=== PATIENT | female | born 1985 | race Caucasian/White ===

== ENCOUNTER 2017-06-20 02:22 | Emergency (ER) | payer MEDICAID, OTHER ==
[~2017-06-20] VITALS: Ht 157.5 cm; Wt 89.0 kg
[~2017-06-20 02:22] MED LIST: FERR28TA PO; HYDR-762 PO; OMEP20CA9 PO; PREN1TAB17 PO; RANI150T9 PO; ZOF8 PO
[2017-06-20 02:31] VITALS: Ht 157.5 cm; Wt 89.0 kg
[2017-06-20] MEDS ORDERED: ONDANSETRON (ODT) 4 MG TAB ODT STA (04:22)
[2017-06-20] MEDS ORDERED: ACET/BUTAL/CAFF TAB PO ONE (04:30)
[2017-06-20 04:31] LABS: URINE BLOOD (Dip) POC Negative (NEGATIVE)
--- NOTE | 2017-06-20 05:06 | RADRPT ---
PROCEDURE: Noncontrast CT Head. CLINICAL INDICATION: Headache and vomiting TECHNIQUE: Noncontrast CT of the head was obtained. The administered radiation dose was CTDI vol = 45 mGy, DLP = 720 mGy-cm. COMPARISON: No pertinent prior examinations were submitted for comparison. FINDINGS: The ventricles and sulci are within normal limits. There is no acute intracranial hemorrhage or ext ra-axial fluid collection. There is no mass effect. No midline shift is identified. There is no loss of burnette-white differentiation to suggest acute infarction. The orbits are within normal limits. The paranasal sinuses and mastoid air cells are without fluid. No destructive osseous lesion is identified. IMPRESSION: No acute findings. RPTAT: HIKT .Tyler Cotton MD, MD Date Time Electronically viewed and signed by .Tyler Cotton MD, on 06/20/2017 05:06 .T/
--- NOTE | 2017-06-20 05:21 | ERD ---
ER Documentation Chief Complaint Date/Time DATE: 06/20/17 TIME: 05:20 Chief Complaint headache x 1 day HPI 32-year-old female presents here in emergency department for complaint of headache and vomiting that started last night. Patient described the pain as throbbing pain, 6/10 scale, no better or worse with anything. Patient denies any head injury. Patient denies any numbness or tingling. Patient denies any changes in balance or memory. Patient did not take any medications to help with symptoms. ROS All systems reviewed and are negative except as per history of present illness. Medications Home Meds Active Scripts Ondansetron Hcl* (Zofran* ODT) 8 mg -ODT Tab.disper, 8 MG PO Q6 Y for NAUSEA AND /OR VOMITING, #14 TAB Prov:TAYLOR JUNIOR PA-C 11/02/15 Hydrocodone Bit-Acetaminophen* ([place]*) 10-325 Mg Tablet, 1 TAB PO Q6 Y for PAIN , #20 TAB Prov:TAYLOR JUNIOR PA-C 11/02/15 Omeprazole* (Prilosec*) 20 Mg Capsule.dr, 20 MG PO BID, #20 CAP Prov:KEISHA YAÑEZ DO 11/02/15 Ranitidine Hcl* (Zantac*) 150 Mg Tablet, 150 MG PO BID Y for GASTROINTESTINAL UPSET, #30 TAB Prov:RAGHU SANCHEZ 08/30/15 Reported Medications Ferrous Sulfate (Ferrous Sulfate) 1 Tab Tablet, 1 TAB PO DAILY 12/08/13 Vit-Iron Fumarate-FA ( Tablet) 1 Each Tablet, 1 EACH PO DAILY 12/08/13 Allergies Allergies: Coded Allergies: No Known Drug Allergies (Verified Allergy, Unknown, 10/22/14) PMhx/Soc History of Surgery: Yes () Anesthesia Reaction: No Hx Neurological Disorder: No Hx Respiratory Disorders: No Hx Cardiac Disorders: No Hx Psychiatric Problems: No Hx Miscellaneous Medical Probl: Yes (Gastritis) Hx Alcohol Use: No Hx Substance Use: No Hx Tobacco Use: No Smoking Status: Never smoker FmHx Family History: No coronary disease, No diabetes, No other Physical Exam Vitals Vital Signs Date Time Temp Pulse Resp B/P Pulse Ox O2 Delivery O2 Flow Rate FiO2 06/20/17 02:31 98.3 95 20 140/83 100 Physical Exam GENERAL: The patient is well developed and appropriate for usual state of health, in no apparent distress. CHEST: Clear to auscultation bilaterally. There are no rales, wheezes or rhonchi. HEART: Regular rate and rhythm. No murmurs, clicks, rubs or gallops. No S3 or S4. ABDOMEN: Soft, nontender and nondistended. Good bowel sounds. No rebound or guarding. No gross peritonitis. No gross organomegaly or masses. No Levy sign or McBurney point tenderness. BACK: No midline or flank tenderness. EXTREMITIES: Equal pulses bilaterally. There is no peripheral clubbing, cyanosis or edema. No focal swelling or erythema. Full range of motion. Grossly neurovascularly intact. NEURO: Alert and oriented. Cranial nerves 2-12 intact. Motor strength in all 4 extremities with 5/5 strength. Sensation grossly intact. Normal speech and gait. Negative Romberg sign. Negative pronator drift. SKIN: There is no apparent rash or petechia. The skin is warm and dry. HEMATOLOGIC AND LYMPHATIC: There is no evidence of excessive bruising or lymphedema. No gross cervical, axillary, or inguinal lymphadenopathy. Results 24 hrs Laboratory Tests Test 06/20/17 04:36 Bedside Urine pH (LAB) 8.5 Bedside Urine Protein (LAB) 1+ Bedside Urine Glucose (UA) Negative Bedside Urine Ketones (LAB) Negative Bedside Urine Blood Negative Bedside Urine Nitrite (LAB) Negative Bedside Urine Leukocyte Esterase (L Negative Current Medications Medications (Trade) Dose Ordered Sig/Daniela Route PRN Reason Start Time Stop Time Status Last Admin Dose Admin Ondansetron HCl (Zofran Odt) 4 mg ONCE STAT ODT 06/20/17 04:22 06/20/17 04:23 DC 06/20/17 04:32 Acetaminophen/ Butalbital/ Caffeine (Fioricet) 1 tab ONCE ONCE PO 06/20/17 04:30 06/20/17 04:31 DC 06/20/17 04:37 Patient was given medication for pain here in emergency department, after treatment, patient verbalized feeling much better. Patient's pain is improved. Patient was given Zofran here in the emergency department. After treatment, patient was able to tolerate po fluids here in the emergency department without any vomiting. There is no signs and symptoms of dehydration. PROCEDURE: Noncontrast CT Head. CLINICAL INDICATION: Headache and vomiting TECHNIQUE: Noncontrast CT of the head was obtained. The administered radiation dose was CTDI vol = 45 mGy, DLP = 720 mGy-cm. COMPARISON: No pertinent prior examinations were submitted for comparison. FINDINGS: The ventricles and sulci are within normal limits. There is no acute intracranial hemorrhage or extra-axial fluid collection. There is no mass effect. No midline shift is identified. There is no loss of burnette-white differentiation to suggest acute infarction. The orbits are within normal limits. The paranasal sinuses and mastoid air cells are without fluid. No destructive osseous lesion is identified. IMPRESSION: No acute findings. RPTAT: HIKT .Tyler Cotton MD, MD Date Time Electronically viewed and signed by .Tyler Cotton MD, MD on 06/20/2017 05:06 .T/ CC: KATIE HUSSEIN [employer] OPERATOR Procedures/MDM Medical Decision Making: Patient symptoms are consistent with migraine headache , possible tension headache. There is low suspicion for neurological emergencies at this time since patients neurologic exam is normal. Patient did not have any altered level consciousness, vomiting, changes in balance or memory and did not have any head injury. Patients CT scan of the head does not show any neurological emergencies at this time. Rx: Fioricet with codeine, Zofran Dispostion: Home. Stable Departure Diagnosis: Primary Impression: Headache Headache type: unspecified Headache chronicity pattern: acute headache Intractability: not intractable Qualified Code: R51 - Acute nonintractable headache, unspecified headache type Condition: Stable Patient Instructions: Self-Care for Headaches KATIE HUSSEIN NP Jun 20, 2017 05:21
[2017-06-20] MEDS ORDERED: ONDA4TAB14 PO (05:24)
[2017-06-20] MEDS ORDERED: BUTA1CAP39 PO (05:24)
== END 2017-06-20 05:32 | disposition home or self-care (01) ==
LOC: FTE 02:22
DX: R51 Headache (principal)
CPT/HCPCS: 70450; 81003; Z7502; Z7610

== ENCOUNTER 2017-09-06 03:44 | Emergency (ER) | payer OTHER ==
[~2017-09-06] VITALS: Ht 157.5 cm; Wt 89.9 kg
[~2017-09-06 03:44] MED LIST changes: +BUTA1CAP39 PO; +ONDA4TAB14 PO
[2017-09-06 03:47] VITALS: Ht 157.5 cm; Wt 89.9 kg
[2017-09-06] MEDS ORDERED: KETOROLAC 30 MG INJ IV STA (03:52)
[2017-09-06] MEDS ORDERED: ONDANSETRON 4 MG INJ IV STA (03:52)
[2017-09-06] MEDS ORDERED: SOD CHLORIDE 0.9% 1,000 ML IV STA (03:52)
[2017-09-06] MEDS ORDERED: morphine 4 MG/ML VIAL IV STA (03:55)
--- NOTE | 2017-09-06 04:38 | RADRPT ---
PROCEDURE: ULTRASOUND LIMITED ABDOMEN CLINICAL INDICATION: 32-year-old female with abdominal pain. TECHNIQUE: Multiple sonographic of the right upper quadrant of the abdomen were obtained. The imag es were reviewed on a PACS workstation. COMPARISON: Ultrasound right upper quadrant November 02, 2015. FINDINGS: The pancreas is not well visualized secondary to overlying bowel gas. The liver displays diffuse increase echogenicity consistent with fatty infiltration. The liver measu res 18.4 cm in length. No evidence of intrahepatic biliary ductal dilatation is seen. The portal an d hepatic veins are unremarkable. The gallbladder contains multiple shadowing stones. Gallbladder wall thickness is within normal limi ts measuring 2.9 mm. No pericholecystic fluid is seen. The common bile duct measures 3.9 mm and is n ot dilated. The right kidney displays normal echogenicity. The right kidney measures 11.0 cm in maximal length. No caliectasis or hydronephrosis is seen. No free fluid is seen. IMPRESSION: 1. Hepatic steatosis. 2. Cholelithiasis. .Yousif Jose MD, Date Time Electronically viewed and signed by .Yousif Jose MD, on 09/06/2017 04:38 .M/
--- NOTE | 2017-09-06 04:41 | ERD ---
ER Documentation Chief Complaint Chief Complaint Epigastric abdominal pain radiating to the back HPI The patient is a 32-year-old female who presents to the Emergency Department with complaint of abdominal pain. The patient reports that last night, for dinner, she at a late meal of tacos. Shortly afterwards she went to sleep, and awake with abdominal pain at 3:00 am. Her pain is localized to the epigastric region of the abdomen, and radiates to the right upper quadrant and then the back. The pain is constant, though waxing and waning in intensity, sharp and cramping in nature. She rates her current pain as 10/10, but has not yet taken any medication for pain relief. She reports associated nausea, but otherwise denies vomiting, diarrhea, fevers, sweats, chills, chest pain, palpitations, shortness of breath, cough, lower extremity swelling, dysuria, hematuria, flank pain. Denies vaginal bleeding or new vaginal discharge. Of note, the patient has a history of gallstones, with similar episodes in the past. ROS All systems reviewed and are negative except as per history of present illness. Medications Home Meds Active Scripts Ibuprofen* (Motrin*) 600 Mg Tab, 600 MG PO Q6, #30 TAB Prov:CHARI CHAVARRIA PA-C 09/06/17 Hydrocodone/Acetaminophen ([place] 5-325 Tablet) 1 Each Tablet, 1 EACH PO Q6, #10 TAB Prov:CHARI CHAVARRIA PA-C 09/06/17 Sulfamethoxazole/Trimethoprim* (Bactrim Ds* Tablet) 1 Each Tablet, 1 TAB PO BID for 7 Days, TAB Prov:CHARI CHAVARRIA PA-C 09/06/17 Ondansetron (Ondansetron Odt) 4 Mg Tab.rapdis, 4 MG PO Q8 Y for NAUSEA AND/OR VOMITING, #30 TAB Prov:KATIE HUSSEIN NP 06/20/17 Xdfaruwiuxdwk-Dumtobyuwv-Pgrxufei-Codeine* (Fioricet w/ Codeine*) [id number] 30MG Capsule, 1 CAP PO Q6H Y for PAIN LEVEL 1-5, #20 CAP Prov:KATIE HUSSEIN NP 06/20/17 Ondansetron Hcl* (Zofran* ODT) 8 mg -ODT Tab.disper, 8 MG PO Q6 Y for NAUSEA AND /OR VOMITING, #14 TAB Prov:TAYLOR JUNIOR PA-C 11/02/15 Hydrocodone Bit-Acetaminophen* ([place]*) 10-325 Mg Tablet, 1 TAB PO Q6 Y for PAIN , #20 TAB Prov:TAYLOR JUNIOR PA-C 11/02/15 Omeprazole* (Prilosec*) 20 Mg Capsule.dr, 20 MG PO BID, #20 CAP Prov:KEISHA YAÑEZ 11/02/15 Ranitidine Hcl* (Zantac*) 150 Mg Tablet, 150 MG PO BID Y for GASTROINTESTINAL UPSET, #30 TAB Prov:RAGHU SANCHEZ 08/30/15 Reported Medications Ferrous Sulfate (Ferrous Sulfate) 1 Tab Tablet, 1 TAB PO DAILY 12/08/13 Vit-Iron Fumarate-FA ( Tablet) 1 Each Tablet, 1 EACH PO DAILY 12/08/13 Allergies Allergies: Coded Allergies: No Known Drug Allergies (Verified Allergy, Unknown, 10/22/14) PMhx/Soc History of Surgery: Yes () Anesthesia Reaction: No Hx Neurological Disorder: No Hx Respiratory Disorders: No Hx Cardiac Disorders: No Hx Psychiatric Problems: No Hx Miscellaneous Medical Probl: Yes (Gastritis) Hx Alcohol Use: No Hx Substance Use: No Hx Tobacco Use: No Smoking Status: Never smoker Physical Exam Vitals Vital Signs Date Time Temp Pulse Resp B/P Pulse Ox O2 Delivery O2 Flow Rate FiO2 09/06/17 03:47 97.9 72 20 140/73 100 Physical Exam GENERAL: Well-developed, well-nourished, in no acute distress. HEENT: Head is normocephalic, atraumatic. No scleral pallor or icterus. Conjunctiva pink. Moist mucous membranes. Clear oropharynx. NECK: Supple. Full range of motion. RESPIRATORY: Lungs are clear to auscultation bilaterally. Equal breath sounds. Normal expiratory effort. CARDIOVASCULAR: Regular rate and rhythm. S1 and S2 normal. No murmurs, rubs, or gallops. GASTROINTESTINAL: Abdomen is soft and nondistended. Tenderness to palpation over the epigastric region of the abdomen. No guarding, no rebound tenderness. Normal bowel sounds. Negative Levy's sign. No tenderness at McBurney's point. FLANK: No CVA tenderness, no mass or swelling. BACK: No midline tenderness. EXTREMITIES: No clubbing, cyanosis, or edema. Normal skin perfusion. Moving all extremities. No focal swelling or erythema. Distal pulses are palpable, 2+ bilaterally. Capillary refill is less than 2 seconds. NEUROLOGIC: The patient is alert, awake, and oriented x 3. INTEGUMENT: Skin is clean, dry and intact. No rashes, lesions or petechiae present. Normal turgor. PSYCHIATRIC: Appropriate; Cooperative. Result Diagram: 09/06/1739909/06/17399 Results 24 hrs Laboratory Tests Test 09/06/17 04:00 09/06/17 04:10 White Blood Count 7.810^3/ul Red Blood Count 4.7210^6/ul Hemoglobin 12.7g/dl Hematocrit 39.8% Mean Corpuscular Volume 84.3fl Mean Corpuscular Hemoglobin 26.9pg Mean Corpuscular Hemoglobin Concent 31.9g/dl Red Cell Distribution Width 13.2% Platelet Count 69975^3/UL Mean Platelet Volume 9.1fl Neutrophils % 58.4% Lymphocytes % 30.4% Monocytes % 7.9% Eosinophils % 2.8% Basophils % 0.1% Nucleated Red Blood Cells % 0.0/100WBC Neutrophils # 4.610^3/ul Lymphocytes # 2.410^3/ul Monocytes # 0.610^3/ul Eosinophils # 0.210^3/ul Basophils # 0.010^3/ul Nucleated Red Blood Cells # 0.010^3/ul Sodium Level 141mmol/L Potassium Level 3.8mmol/L Chloride Level 104mmol/L Carbon Dioxide Level 29mmol/L Anion Gap 12 Blood Urea Nitrogen 12mg/dl Creatinine 0.67mg/dl Glucose Level 94mg/dl Calcium Level 9.5mg/dl Total Bilirubin 0.1mg/dl Direct Bilirubin 0.00mg/dl Indirect Bilirubin 0.1mg/dl Aspartate Amino Transf (AST/SGOT) 25IU/L Alanine Aminotransferase (ALT/SGPT) 40IU/L Alkaline Phosphatase 123IU/L Total Protein 8.3g/dl Albumin 4.3g/dl Globulin 4.00g/dl Albumin/Globulin Ratio 1.07 Lipase 118U/L Urine Color YELLOW Urine Clarity SLIGHTLY CLOUDY Urine pH 6.0 Urine Specific [place] 1.029 Urine Ketones NEGATIVEmg/dL Urine Nitrite NEGATIVEmg/dL Urine Bilirubin NEGATIVEmg/dL Urine Urobilinogen NEGATIVEmg/dL Urine Leukocyte Esterase 1+[place]/ul Urine Microscopic RBC 2/HPF Urine Microscopic WBC 7/HPF Urine Squamous Epithelial Cells MODERATE/HPF Urine Mucus FEW/HPF Urine Hemoglobin NEGATIVEmg/dL Urine Glucose NEGATIVEmg/dL Urine Total Protein NEGATIVEmg/dl Current Medications Medications (Trade) Dose Ordered Sig/Daniela Route PRN Reason Start Time Stop Time Status Last Admin Dose Admin Sodium Chloride (NS) 1,000 ml @ 1,000 mls/hr Q1H STAT IV 09/06/17 03:52 09/06/17 04:51 DC 09/06/17 04:09 Ondansetron HCl (Zofran Inj) 4 mg ONCE STAT IV 09/06/17 03:52 09/06/17 03:54 DC 09/06/17 04:09 Ketorolac Tromethamine (Toradol) 30 mg ONCE STAT IV 09/06/17 03:52 09/06/17 03:54 DC 09/06/17 04:09 Morphine Sulfate (morphine) 4 mg ONCE STAT IV 09/06/17 03:55 09/06/17 03:56 DC 09/06/17 04:09 Procedures/MDM DIAGNOSTIC TESTS AND INTERPRETATION: PROCEDURE: ULTRASOUND LIMITED ABDOMEN CLINICAL INDICATION: 32-year-old female with abdominal pain. TECHNIQUE: Multiple sonographic of the right upper quadrant of the abdomen were obtained. The images were reviewed on a PACS workstation. COMPARISON: Ultrasound right upper quadrant November 02, 2015. FINDINGS: The pancreas is not well visualized secondary to overlying bowel gas. The liver displays diffuse increase echogenicity consistent with fatty infiltration. The liver measures 18.4 cm in length. No evidence of intrahepatic biliary ductal dilatation is seen. The portal and hepatic veins are unremarkable. The gallbladder contains multiple shadowing stones. Gallbladder wall thickness is within normal limits measuring 2.9 mm. No pericholecystic fluid is seen. The common bile duct measures 3.9 mm and is not dilated. The right kidney displays normal echogenicity. The right kidney measures 11.0 cm in maximal length. No caliectasis or hydronephrosis is seen. No free fluid is seen. IMPRESSION: 1. Hepatic steatosis. 2. Cholelithiasis. .Yousif Jose MD, MD Date Time Electronically viewed and signed by .Yousif Jose MD, MD on 09/06/2017 04:38 MEDICAL DECISION MAKING: This is a 32-year-old female presenting to the Emergency Department with complaint of epigastric abdominal pain. Her pain began shortly after eating a meal of tacos. On physical examination the patient's abdomen was soft, with tenderness to palpation over the epigastrium. No distention, no guarding, no gross peritonitis. Negative Levy's sign. Differential diagnosis includes, but is not limited to, gastroenteritis, gastritis, cholecystitis, cholangitis, choledocholithiasis, pancreatitis, perforated viscus, mesenteric ischemia, GERD , PUD, urinary tract infection, acute coronary syndrome, peptic ulcer disease, pyelonephritis, pneumonia, hepatitis, infectious diarrhea, IBD, aortic dissection, torsion, bowel obstruction, appendicitis, diverticulitis. No significant acute abnormalities were noted on laboratory testing performed. Urinalysis with 1+ urine leukocyte esterase, concerning for possible urinary tract infection. Ultrasound imaging did reveal evidence of gallstones. Otherwise, no evidence of acute cholecystitis, cholangitis, choledocholithiasis or gallstone pancreatitis. After rest and administration of medications, the patient reports no new complaints and resolved pain and symptoms. Upon review and interpretation of the patient's presentation and overall ER course, I believe the patient's symptoms are most consistent with epigastric abdominal pain, likely secondary to cholelithiasis without cholecystitis/ biliary colic andurinary tract infection. Doubt acute coronary syndrome - symptoms and examination inconsistent. Doubt pancreatitis - clinical presentation inconsistent, lipase normal. Doubt perforated ulcer, patient has a non-surgical abdomen. Doubt small bowel obstruction, patient is passing flatus, abdomen is non-distended. Doubt appendicitis, patient has no McBurney' s point tenderness, no guarding, non-surgical abdomen, no tenderness over the RLQ. Doubt diverticulitis, exam inconsistent. Doubt ischemic bowel, no pain out of proportion to examination. Doubt torsion, symptoms and examination inconsistent. At this time, the patient is in stable condition and therefore can be discharged home with prescriptions for Ibuprofen, [place] and Bactrim, and strict return precautions for signs of deteriorating or worsening condition. She is advised to follow up with her primary care provider in 1-2 days for reevaluation and further management, or return to the ER sooner if symptoms worsen. I shared my medical decision making, plan, as well as the results with the patient at length and in great detail, and she verbally understands and agrees with the plan for further observation and care as an outpatient. At the time of discharge, all questions were answered. Departure Diagnosis: Primary Impression: Cholelithiasis without cholecystitis Additional Impressions: Biliary colic Epigastric abdominal pain Urinary tract infection Urinary tract infection type: site unspecified Hematuria presence: without hematuria Qualified Code: N39.0 - Urinary tract infection without hematuria, site unspecified Condition: Stable Patient Instructions: Biliary Colic With Gallstone (Confirmed), Gallstones, Treating Gallstones, Urinary Tract Infections in Women, What Are Gallstones? Additional Instructions: Follow up with your primary medical provider in 1-2 days for reevaluation and further management. Please obtain a referral to a general surgeon to discuss elective cholecystectomy. Return to the ED for any new or worsening symptoms. CHARI CHAVARRIA PA-C Sep 06, 2017 04:41
[2017-09-06] MEDS ORDERED: SULF1TAB31 PO (05:09)
[2017-09-06] MEDS ORDERED: IBUP-1542 PO (05:10)
[2017-09-06] MEDS ORDERED: HYDR-906 PO (05:10)
== END 2017-09-06 05:25 | disposition home or self-care (01) ==
LOC: FTE 03:44
DX: K80.70 Calculus of gallbladder and bile duct without cholecystitis without obstruction (principal); N39.0 Urinary tract infection, site not specified
CPT/HCPCS: 36415; 76705; 80053; 81001; 83690; 85025; 96374; 96375; J1885; J2270; J2405; J7030; Z7502

== ENCOUNTER 2017-11-19 12:36 | Emergency (ER) | END 2017-11-19 15:55 | disposition left against medical advice (07) ==

== ENCOUNTER 2018-08-14 21:23 | Emergency (ER) | END 2018-08-14 22:55 | disposition home or self-care (01) ==